=== PATIENT | male | born 1945 | race Caucasian/White ===

== ENCOUNTER 2019-03-03 11:11 | Inpatient (IN) | payer OTHER ==
[~2019-03-03] VITALS: Ht 175.3 cm; Wt 94.8 kg
[~2019-03-03 11:11] MED LIST: AMIO200T6 PO; ATOR20TA64 PO; CARV12.548 PO; HYDR-4039 PO; L-THYROXINE PO; NOR10 PO
[2019-03-03 12:14] VITALS: BP_SYST 144
[2019-03-03] MEDS ORDERED: SAW/1TAB2 PO (13:48)
[2019-03-03] MEDS ORDERED: [UNRECOGNIZED DRUG - CODE] MC (13:48)
[2019-03-03] MEDS ORDERED: FINA5TAB3 PO (13:48)
[2019-03-03] MEDS ORDERED: ASCO500T20 PO (13:48)
[2019-03-03] MEDS ORDERED: MULT-1198 PO (13:48)
[2019-03-03] MEDS ORDERED: FURO-149 PO (13:48)
[2019-03-03] MEDS ORDERED: ASPI-1155 PO (13:48)
[2019-03-03] MEDS ORDERED: OMEG-173 PO (13:48)
[2019-03-03] MEDS ORDERED: CAT.1 PO (13:48)
[2019-03-03 14:02] LABS: ANION GAP 15 (5-15); CALCIUM 8.9 mg/dL (8.4-11.0); CHLORIDE 102 mmol/L (98-107); GLUCOSE 124 mg/dL (70-99); POTASSIUM 4.7 mmol/L (3.5-5.1); SODIUM SERUM 136 mmol/L (136-145)
[2019-03-03 14:07] LABS: CREATININE 7.73 mg/dL (0.55-1.30); UREA NITROGEN, BLOOD 128 mg/dL (8-21)
[2019-03-03 14:08] LABS: ALANINE AMINOTRANSFERASE 62 U/L (12-78); ALBUMIN 2.5 g/dL (3.4-4.8); ASPARTATE AMINOTRANSFERASE 29 U/L (10-37); TOTAL BILIRUBIN 0.9 mg/dL (0.0-1.0)
[2019-03-03 14:13] LABS: BASOPHILS % (AUTO) 0.1 % (0.0-2.0); LYMPHOCYTES % (AUTO) 6.3 % (20.5-51.5); MEAN CORPUSCULAR HEMOGLOBIN 34 pg (27-31); MEAN CORPUSCULAR HGB CONC 33 % (32-36); MEAN CORPUSCULAR VOLUME 103 fL (79.0-98.0); MONOCYTES % (AUTO) 6.3 % (1.7-9.3); NEUTROPHILS % (AUTO) 87.3 % (40.0-70.0); PLATELET COUNT (AUTO) 224 K/uL (130-430); RED CELL DISTRIBUTION WIDTH 13.3 % (9.0-15.0)
[2019-03-03 14:21] LABS: RED BLOOD CELL COUNT(AUTO) 1.88 MIL/uL (4.2-6.2)
[2019-03-03 14:28] LABS: HEMOGLOBIN 6.3 g/dL (14.0-18.0)
[2019-03-03 14:29] LABS: HEMATOCRIT 19.4 % (36-54)
[2019-03-03 16:00] VITALS: BP_SYST 122; BP_SYST 144
[2019-03-03] MEDS ORDERED: LevALBUTEROL HCL 1.25 MG/0.5 ML *CONC.* VIAL.NEB (XOPENEX CONC.) INH PRN (16:00)
[2019-03-03] MEDS ORDERED: PROPOFOL 200MG/ 20ML VIAL (DIPRIVAN) IV ONE (17:20)
[2019-03-03] MEDS ORDERED: BUPIVACAINE /EPINEPHRINE/PF 0.25% 30 ML VIAL INJ ONE (17:20)
[2019-03-03] MEDS ORDERED: HEPARIN SODIUM,PORCINE/NS/PF 1,000 UNITS/500 ML BAG IV ONE (17:20)
[2019-03-03] MEDS ORDERED: HEPARIN SODIUM,PORCINE 5000 UNITS/ML VIAL SUBCUT ONE (17:20)
[2019-03-03] MEDS ORDERED: LIDOCAINE/EPI 1% 1:100000 20 ML VIAL INJ ONE (17:20)
[2019-03-03] MEDS ORDERED: 0.45% NACL 1,000 ML BAG IV ONE (17:20)
[2019-03-03] MEDS ORDERED: MIDAZOLAM HCL 5 MG/5 ML VIAL IVP ONE (17:20)
[2019-03-03] MEDS ORDERED: ONDANSETRON HCL 4 MG/2 ML VIAL IVP ONE (17:20)
[2019-03-03] MEDS: cefTRIAXone 1 GM in D5W 50 ML IV SCH (17:38)
[2019-03-03] MEDS: NACL 0.9% 1,000 ML IV SCH (17:39)
[2019-03-03 19:05] VITALS: BP_SYST 144
[2019-03-03] MEDS: CARVEDILOL 25 MG TABLET (COREG) PO SCH (20:08)
[2019-03-03] MEDS: AZITHROMYCIN 500 MG in NS 250 ML IV SCH (20:08)
[2019-03-03] MEDS: hydrALAZINE HCL 25 MG TABLET PO SCH (22:33)
[2019-03-03] MEDS: cloNIDine HCL 0.1 MG TABLET PO SCH (22:34)
[2019-03-03] MEDS: LevALBUTEROL HCL 1.25 MG/0.5 ML *CONC.* VIAL.NEB (XOPENEX CONC.) INH SCH (23:40)
[2019-03-04 00:46] VITALS: BP_SYST 123
[2019-03-04 01:21] LABS: TOTAL IRON BIND. CAPACITY 170 ug/dL (250-450)
[2019-03-04] MEDS: NACL 0.9% 1,000 ML IV SCH ×3 (06:07→22:34)
[2019-03-04] MEDS: hydrALAZINE HCL 25 MG TABLET PO SCH ×3 (06:08→21:07)
[2019-03-04] MEDS: cloNIDine HCL 0.1 MG TABLET PO SCH ×3 (06:08→21:07)
[2019-03-04] MEDS: LEVOTHYROXINE SODIUM 0.1 MG TABLET PO SCH (06:08)
[2019-03-04] MEDS: LevALBUTEROL HCL 1.25 MG/0.5 ML *CONC.* VIAL.NEB (XOPENEX CONC.) INH SCH ×2 (07:57→15:25)
[2019-03-04 08:52] LABS: BASOPHILS % (AUTO) 0.1 % (0.0-2.0); EOSINOPHILS % (AUTO) 0.1 % (0.0-4.0); HEMOGLOBIN 7.3 g/dL (14.0-18.0); LYMPHOCYTES # (AUTO) 1.1 K/uL (1.0-5.5); LYMPHOCYTES % (AUTO) 6.9 % (20.5-51.5); MEAN CORPUSCULAR HEMOGLOBIN 33 pg (27-31); MEAN CORPUSCULAR HGB CONC 33 % (32-36); MEAN CORPUSCULAR VOLUME 99 fL (79.0-98.0); MONOCYTES # (AUTO) 0.9 K/uL (0.0-1.0); MONOCYTES % (AUTO) 5.6 % (1.7-9.3); NEUTROPHILS # (AUTO) 13.4 K/uL (1.8-7.7); NEUTROPHILS % (AUTO) 87.3 % (40.0-70.0); PLATELET COUNT (AUTO) 215 K/uL (130-430); RED BLOOD CELL COUNT(AUTO) 2.21 MIL/uL (4.2-6.2); RED CELL DISTRIBUTION WIDTH 14.6 % (9.0-15.0); WHITE BLOOD COUNT (AUTO) 15.3 K/uL (4.8-10.8)
[2019-03-04] MEDS ORDERED: LYC PO SCH (09:00)
[2019-03-04] MEDS ORDERED: SAW PO SCH (09:00)
[2019-03-04] MEDS ORDERED: [UNRECOGNIZED DRUG - OTHER] PO SCH (09:00)
[2019-03-04] MEDS ORDERED: METHYLSULFONYLMETHANE MC SCH (09:00)
[2019-03-04] MEDS ORDERED: SOD SEL PO SCH (09:00)
[2019-03-04] MEDS ORDERED: BETA PO SCH (09:00)
[2019-03-04] MEDS ORDERED: PYG PO SCH (09:00)
[2019-03-04] MEDS ORDERED: VIT E PO SCH (09:00)
[2019-03-04 09:06] LABS: ANION GAP 16 (5-15); CALCIUM 8.3 mg/dL (8.4-11.0); CHLORIDE 105 mmol/L (98-107); CREATININE 7.42 mg/dL (0.55-1.30); GLUCOSE 107 mg/dL (70-99); POTASSIUM 4.4 mmol/L (3.5-5.1); SODIUM SERUM 138 mmol/L (136-145)
[2019-03-04 09:10] VITALS: BP_SYST 119
[2019-03-04] MEDS: OMEGA-3/DHA/EPA/FISH OIL 1 GM CAPSULE PO SCH (09:14)
[2019-03-04] MEDS: ASPIRIN 81 MG TAB.CHEW PO SCH (09:14)
[2019-03-04] MEDS: ATORVASTATIN 20 MG TABLET PO SCH (09:14)
[2019-03-04] MEDS: CARVEDILOL 25 MG TABLET (COREG) PO SCH ×2 (09:14→21:08)
[2019-03-04] MEDS: MULTIVITS,CA,MINERALS/IRON/FA 1 TABLET PO SCH (09:15)
[2019-03-04] MEDS: ASCORBIC ACID 500 MG TABLET PO SCH (09:15)
[2019-03-04] MEDS: FINASTERIDE 5 MG TABLET (PROSCAR) PO SCH (09:15)
[2019-03-04] MEDS: amLODIPine BESYLATE 5 MG TABLET PO SCH (09:15)
[2019-03-04 09:19] LABS: UREA NITROGEN, BLOOD 130 mg/dL (8-21)
[2019-03-04 14:42] VITALS: BP_SYST 116
[2019-03-04] MEDS: cefTRIAXone 1 GM in D5W 50 ML IV SCH (15:58)
[2019-03-04 16:41] VITALS: BP_SYST 116
[2019-03-04] MEDS: AZITHROMYCIN 500 MG in NS 250 ML IV SCH (16:49)
[2019-03-04 16:57] LABS: BILIRUBIN,URINE NEGATIVE (NEGATIVE); BLOOD, URINE 3+ (NEGATIVE); CLARITY/URINE HAZY (CLEAR); COLOR,URINE YELLOW (YELLOW); GLUCOSE,URINE NEGATIVE (NEGATIVE); KETONES,URINE NEGATIVE (NEGATIVE); LEUKOCYTE ESTERASE ,URINE 3+ (NEGATIVE); NITRITE, URINE NEGATIVE (NEGATIVE); PH,URINE 5.5 (5.0-8.0); PROTEIN URINE 3+ (NEGATIVE); UROBILINOGEN,URINE 0.2 (0.2-1.0)
[2019-03-04 17:05] LABS: BACTERIA,URINE MANY /HPF (None Seen); MUCUS,URINE None Seen /LPF (None Seen); RBC,URINE 20-50 /HPF (0-3); WBC,URINE >100 /HPF (0-3)
[2019-03-04 19:45] VITALS: BP_SYST 136
[2019-03-04 23:21] VITALS: BP_SYST 123
[2019-03-05] MEDS: LevALBUTEROL HCL 1.25 MG/0.5 ML *CONC.* VIAL.NEB (XOPENEX CONC.) INH SCH ×4 (00:30→23:19)
[2019-03-05] MEDS: hydrALAZINE HCL 25 MG TABLET PO SCH ×3 (06:01→21:05)
[2019-03-05] MEDS: LEVOTHYROXINE SODIUM 0.1 MG TABLET PO SCH (06:02)
[2019-03-05] MEDS: cloNIDine HCL 0.1 MG TABLET PO SCH ×3 (06:02→21:04)
[2019-03-05 06:22] LABS: BASOPHILS % (AUTO) 0.1 % (0.0-2.0); EOSINOPHILS % (AUTO) 0.1 % (0.0-4.0); HEMATOCRIT 22.3 % (36-54); HEMOGLOBIN 7.4 g/dL (14.0-18.0); LYMPHOCYTES # (AUTO) 1.1 K/uL (1.0-5.5); LYMPHOCYTES % (AUTO) 8.7 % (20.5-51.5); MEAN CORPUSCULAR HEMOGLOBIN 34 pg (27-31); MEAN CORPUSCULAR HGB CONC 33 % (32-36); MEAN CORPUSCULAR VOLUME 102 fL (79.0-98.0); MONOCYTES # (AUTO) 0.7 K/uL (0.0-1.0); MONOCYTES % (AUTO) 5.3 % (1.7-9.3); NEUTROPHILS # (AUTO) 11.1 K/uL (1.8-7.7); NEUTROPHILS % (AUTO) 85.8 % (40.0-70.0); PLATELET COUNT (AUTO) 226 K/uL (130-430); RED BLOOD CELL COUNT(AUTO) 2.19 MIL/uL (4.2-6.2); RED CELL DISTRIBUTION WIDTH 14.3 % (9.0-15.0)
[2019-03-05 06:43] LABS: ANION GAP 17 (5-15); CALCIUM 8.3 mg/dL (8.4-11.0); CHLORIDE 106 mmol/L (98-107); CREATININE 7.32 mg/dL (0.55-1.30); GLUCOSE 103 mg/dL (70-99); POTASSIUM 4.4 mmol/L (3.5-5.1); SODIUM SERUM 139 mmol/L (136-145)
[2019-03-05 07:13] LABS: UREA NITROGEN, BLOOD 129 mg/dL (8-21)
[2019-03-05 08:10] VITALS: BP_SYST 121
[2019-03-05] MEDS: ASPIRIN 81 MG TAB.CHEW PO SCH (08:40)
[2019-03-05] MEDS: amLODIPine BESYLATE 5 MG TABLET PO SCH (08:40)
[2019-03-05] MEDS: MULTIVITS,CA,MINERALS/IRON/FA 1 TABLET PO SCH (08:40)
[2019-03-05] MEDS: ASCORBIC ACID 500 MG TABLET PO SCH (08:41)
[2019-03-05] MEDS: FINASTERIDE 5 MG TABLET (PROSCAR) PO SCH (08:41)
[2019-03-05] MEDS: CARVEDILOL 25 MG TABLET (COREG) PO SCH ×2 (08:41→21:04)
[2019-03-05] MEDS: ATORVASTATIN 20 MG TABLET PO SCH (08:41)
[2019-03-05] MEDS: OMEGA-3/DHA/EPA/FISH OIL 1 GM CAPSULE PO SCH (08:41)
[2019-03-05 12:17] VITALS: BP_SYST 128
[2019-03-05] MEDS: cefTRIAXone 1 GM in D5W 50 ML IV SCH (15:25)
[2019-03-05 16:02] VITALS: BP_SYST 141
[2019-03-05] MEDS: AZITHROMYCIN 500 MG in NS 250 ML IV SCH (17:01)
[2019-03-05 20:00] VITALS: BP_SYST 125
[2019-03-06] MEDS: NACL 0.9% 1,000 ML IV SCH ×2 (04:36→16:17)
[2019-03-06] MEDS: hydrALAZINE HCL 25 MG TABLET PO SCH ×3 (06:57→22:10)
[2019-03-06] MEDS: LEVOTHYROXINE SODIUM 0.1 MG TABLET PO SCH (06:57)
[2019-03-06] MEDS: cloNIDine HCL 0.1 MG TABLET PO SCH ×3 (06:58→22:08)
[2019-03-06 07:03] LABS: BASOPHILS % (AUTO) 0.2 % (0.0-2.0); EOSINOPHILS % (AUTO) 0.3 % (0.0-4.0); HEMATOCRIT 22.6 % (36-54); HEMOGLOBIN 7.6 g/dL (14.0-18.0); LYMPHOCYTES # (AUTO) 1.1 K/uL (1.0-5.5); LYMPHOCYTES % (AUTO) 8.7 % (20.5-51.5); MEAN CORPUSCULAR HEMOGLOBIN 34 pg (27-31); MEAN CORPUSCULAR HGB CONC 34 % (32-36); MEAN CORPUSCULAR VOLUME 100 fL (79.0-98.0); MONOCYTES # (AUTO) 0.6 K/uL (0.0-1.0); MONOCYTES % (AUTO) 5.1 % (1.7-9.3); NEUTROPHILS # (AUTO) 10.4 K/uL (1.8-7.7); NEUTROPHILS % (AUTO) 85.7 % (40.0-70.0); PLATELET COUNT (AUTO) 252 K/uL (130-430); RED BLOOD CELL COUNT(AUTO) 2.26 MIL/uL (4.2-6.2); RED CELL DISTRIBUTION WIDTH 14.6 % (9.0-15.0); WHITE BLOOD COUNT (AUTO) 12.2 K/uL (4.8-10.8)
[2019-03-06 08:16] VITALS: BP_SYST 121
[2019-03-06] MEDS: FINASTERIDE 5 MG TABLET (PROSCAR) PO SCH (08:17)
[2019-03-06] MEDS: OMEGA-3/DHA/EPA/FISH OIL 1 GM CAPSULE PO SCH (08:17)
[2019-03-06] MEDS: CARVEDILOL 25 MG TABLET (COREG) PO SCH ×2 (08:18→22:10)
[2019-03-06] MEDS: ASCORBIC ACID 500 MG TABLET PO SCH (08:18)
[2019-03-06] MEDS: ASPIRIN 81 MG TAB.CHEW PO SCH (08:19)
[2019-03-06] MEDS: amLODIPine BESYLATE 5 MG TABLET PO SCH (08:19)
[2019-03-06] MEDS: MULTIVITS,CA,MINERALS/IRON/FA 1 TABLET PO SCH (08:19)
[2019-03-06] MEDS: ATORVASTATIN 20 MG TABLET PO SCH (08:19)
[2019-03-06] MEDS: LevALBUTEROL HCL 1.25 MG/0.5 ML *CONC.* VIAL.NEB (XOPENEX CONC.) INH SCH ×3 (08:25→23:03)
[2019-03-06 08:44] LABS: ANION GAP 19 (5-15); CALCIUM 8.5 mg/dL (8.4-11.0); CHLORIDE 107 mmol/L (98-107); CREATININE 7.28 mg/dL (0.55-1.30); GLUCOSE 97 mg/dL (70-99); POTASSIUM 4.3 mmol/L (3.5-5.1); SODIUM SERUM 140 mmol/L (136-145)
[2019-03-06 10:22] LABS: UREA NITROGEN, BLOOD 137 mg/dL (8-21)
[2019-03-06 12:00] VITALS: BP_SYST 126
[2019-03-06 15:20] VITALS: BP_SYST 126
[2019-03-06 15:29] VITALS: BP_SYST 145
[2019-03-06] MEDS: cefTRIAXone 1 GM in D5W 50 ML IV SCH (16:17)
[2019-03-06] MEDS: AZITHROMYCIN 500 MG in NS 250 ML IV SCH (17:17)
[2019-03-06] MEDS ORDERED: HEPARIN SODIUM,PORCINE 5000 UNITS/ML VIAL IVP ONE (17:30)
[2019-03-06 20:00] VITALS: BP_SYST 141
[2019-03-06] MEDS ORDERED: LIDOCAINE 1%, 20 ML MDV 20 ML ONE (22:01)
[2019-03-06 22:41] LABS: BASOPHILS % (AUTO) 0.1 % (0.0-2.0); HEMOGLOBIN 7.6 g/dL (14.0-18.0); RED CELL DISTRIBUTION WIDTH 14.6 % (9.0-15.0)
[2019-03-06 22:46] LABS: EOSINOPHILS % (AUTO) 0.1 % (0.0-4.0); HEMATOCRIT 22.8 % (36-54); LYMPHOCYTES % (AUTO) 8.4 % (20.5-51.5); MEAN CORPUSCULAR HEMOGLOBIN 33 pg (27-31); MEAN CORPUSCULAR HGB CONC 34 % (32-36); MEAN CORPUSCULAR VOLUME 100 fL (79.0-98.0); MONOCYTES # (AUTO) 0.7 K/uL (0.0-1.0); MONOCYTES % (AUTO) 5.4 % (1.7-9.3); NEUTROPHILS # (AUTO) 10.5 K/uL (1.8-7.7); PLATELET COUNT (AUTO) 272 K/uL (130-430); RED BLOOD CELL COUNT(AUTO) 2.28 MIL/uL (4.2-6.2); WHITE BLOOD COUNT (AUTO) 12.2 K/uL (4.8-10.8)
[2019-03-06 23:40] VITALS: BP_SYST 135
[2019-03-07] MEDS: NACL 0.9% 1,000 ML IV SCH (05:51)
[2019-03-07] MEDS: hydrALAZINE HCL 25 MG TABLET PO SCH ×3 (05:52→21:03)
[2019-03-07] MEDS: cloNIDine HCL 0.1 MG TABLET PO SCH ×3 (05:52→21:02)
[2019-03-07] MEDS: LEVOTHYROXINE SODIUM 0.1 MG TABLET PO SCH (05:52)
[2019-03-07 06:10] LABS: BASOPHILS % (AUTO) 0.3 % (0.0-2.0); EOSINOPHILS % (AUTO) 0.2 % (0.0-4.0); HEMATOCRIT 22.5 % (36-54); HEMOGLOBIN 7.4 g/dL (14.0-18.0); LYMPHOCYTES # (AUTO) 1.2 K/uL (1.0-5.5); LYMPHOCYTES % (AUTO) 9.5 % (20.5-51.5); MEAN CORPUSCULAR HEMOGLOBIN 33 pg (27-31); MEAN CORPUSCULAR HGB CONC 33 % (32-36); MEAN CORPUSCULAR VOLUME 101 fL (79.0-98.0); MONOCYTES # (AUTO) 0.7 K/uL (0.0-1.0); MONOCYTES % (AUTO) 5.4 % (1.7-9.3); NEUTROPHILS # (AUTO) 10.5 K/uL (1.8-7.7); NEUTROPHILS % (AUTO) 84.6 % (40.0-70.0); PLATELET COUNT (AUTO) 274 K/uL (130-430); RED BLOOD CELL COUNT(AUTO) 2.24 MIL/uL (4.2-6.2); RED CELL DISTRIBUTION WIDTH 14.7 % (9.0-15.0); WHITE BLOOD COUNT (AUTO) 12.4 K/uL (4.8-10.8)
[2019-03-07 06:30] LABS: ANION GAP 15 (5-15); CALCIUM 8.1 mg/dL (8.4-11.0); CHLORIDE 109 mmol/L (98-107); CREATININE 7.07 mg/dL (0.55-1.30); GLUCOSE 98 mg/dL (70-99); POTASSIUM 4.1 mmol/L (3.5-5.1); SODIUM SERUM 139 mmol/L (136-145)
[2019-03-07 06:43] LABS: UREA NITROGEN, BLOOD 134 mg/dL (8-21)
[2019-03-07] MEDS: ASPIRIN 81 MG TAB.CHEW PO SCH (07:47)
[2019-03-07 08:00] VITALS: BP_SYST 138
[2019-03-07] MEDS: LevALBUTEROL HCL 1.25 MG/0.5 ML *CONC.* VIAL.NEB (XOPENEX CONC.) INH SCH ×3 (08:02→23:04)
[2019-03-07] MEDS: CARVEDILOL 25 MG TABLET (COREG) PO SCH ×2 (09:00→21:02)
[2019-03-07] MEDS: FINASTERIDE 5 MG TABLET (PROSCAR) PO SCH (09:00)
[2019-03-07] MEDS: ATORVASTATIN 20 MG TABLET PO SCH (09:00)
[2019-03-07] MEDS: MULTIVITS,CA,MINERALS/IRON/FA 1 TABLET PO SCH (09:00)
[2019-03-07] MEDS: amLODIPine BESYLATE 5 MG TABLET PO SCH (09:00)
[2019-03-07] MEDS: OMEGA-3/DHA/EPA/FISH OIL 1 GM CAPSULE PO SCH (09:00)
[2019-03-07] MEDS: ASCORBIC ACID 500 MG TABLET PO SCH (09:00)
[2019-03-07 12:11] VITALS: BP_SYST 130
[2019-03-07] MEDS ORDERED: EPOETIN ALFA 10,000 UNITS/ML VIAL SUBCUT ONE (14:00)
[2019-03-07] MEDS: cefTRIAXone 1 GM in D5W 50 ML IV SCH (14:56)
[2019-03-07 15:18] LABS: EOSINOPHILS % (AUTO) 0.2 % (0.0-4.0); HEMATOCRIT 23.6 % (36-54); HEMOGLOBIN 7.8 g/dL (14.0-18.0); LYMPHOCYTES # (AUTO) 1.1 K/uL (1.0-5.5); LYMPHOCYTES % (AUTO) 8.3 % (20.5-51.5); MEAN CORPUSCULAR HEMOGLOBIN 33 pg (27-31); MEAN CORPUSCULAR HGB CONC 33 % (32-36); MEAN CORPUSCULAR VOLUME 100 fL (79.0-98.0); MONOCYTES # (AUTO) 0.8 K/uL (0.0-1.0); NEUTROPHILS # (AUTO) 10.8 K/uL (1.8-7.7); NEUTROPHILS % (AUTO) 85.5 % (40.0-70.0); PLATELET COUNT (AUTO) 267 K/uL (130-430); RED BLOOD CELL COUNT(AUTO) 2.36 MIL/uL (4.2-6.2); RED CELL DISTRIBUTION WIDTH 14.5 % (9.0-15.0); WHITE BLOOD COUNT (AUTO) 12.6 K/uL (4.8-10.8)
[2019-03-07 15:23] LABS: ANION GAP 15 (5-15); CALCIUM 8.4 mg/dL (8.4-11.0); CHLORIDE 108 mmol/L (98-107); CREATININE 4.87 mg/dL (0.55-1.30); GLUCOSE 100 mg/dL (70-99); POTASSIUM 3.5 mmol/L (3.5-5.1); SODIUM SERUM 143 mmol/L (136-145); UREA NITROGEN, BLOOD 88 mg/dL (8-21)
[2019-03-07] MEDS: AZITHROMYCIN 500 MG in NS 250 ML IV SCH (17:00)
[2019-03-07] MEDS ORDERED: 0.45% NACL 1,000 ML IV SCH (18:01)
[2019-03-07] MEDS ORDERED: METOCLOPRAMIDE HCL 10 MG/2 ML VIAL IVP PRN (18:15)
[2019-03-07 20:00] VITALS: BP_SYST 121
[2019-03-08 01:20] VITALS: BP_SYST 122
[2019-03-08] MEDS: cloNIDine HCL 0.1 MG TABLET PO SCH ×2 (06:00→13:05)
[2019-03-08] MEDS: hydrALAZINE HCL 25 MG TABLET PO SCH ×3 (06:00→15:54)
[2019-03-08] MEDS: LEVOTHYROXINE SODIUM 0.1 MG TABLET PO SCH (06:33)
[2019-03-08 06:35] LABS: BASOPHILS % (AUTO) 0.2 % (0.0-2.0); EOSINOPHILS % (AUTO) 0.2 % (0.0-4.0); HEMOGLOBIN 7.2 g/dL (14.0-18.0); LYMPHOCYTES # (AUTO) 1.4 K/uL (1.0-5.5); LYMPHOCYTES % (AUTO) 11.3 % (20.5-51.5); MEAN CORPUSCULAR HEMOGLOBIN 34 pg (27-31); MEAN CORPUSCULAR HGB CONC 33 % (32-36); MEAN CORPUSCULAR VOLUME 103 fL (79.0-98.0); MONOCYTES # (AUTO) 0.8 K/uL (0.0-1.0); MONOCYTES % (AUTO) 6.5 % (1.7-9.3); NEUTROPHILS % (AUTO) 81.8 % (40.0-70.0); PLATELET COUNT (AUTO) 259 K/uL (130-430); RED BLOOD CELL COUNT(AUTO) 2.11 MIL/uL (4.2-6.2); RED CELL DISTRIBUTION WIDTH 14.2 % (9.0-15.0); WHITE BLOOD COUNT (AUTO) 12.2 K/uL (4.8-10.8)
[2019-03-08 06:36] VITALS: BP_SYST 135
[2019-03-08 06:51] LABS: ALANINE AMINOTRANSFERASE 57 U/L (12-78); ALBUMIN 1.9 g/dL (3.4-4.8); ANION GAP 15 (5-15); ASPARTATE AMINOTRANSFERASE 29 U/L (10-37); CHLORIDE 107 mmol/L (98-107); CREATININE 5.45 mg/dL (0.55-1.30); GLUCOSE 90 mg/dL (70-99); SODIUM SERUM 144 mmol/L (136-145); TOTAL BILIRUBIN 0.4 mg/dL (0.0-1.0); UREA NITROGEN, BLOOD 97 mg/dL (8-21)
[2019-03-08] MEDS: LevALBUTEROL HCL 1.25 MG/0.5 ML *CONC.* VIAL.NEB (XOPENEX CONC.) INH SCH ×2 (07:15→15:05)
[2019-03-08 07:36] LABS: HEMATOCRIT 21.6 % (36-54)
[2019-03-08 08:05] VITALS: BP_SYST 140
[2019-03-08 08:36] LABS: HEPATITIS A AB, IgM Negative (Negative); HEPATITIS B CORE AB, IgM Negative (Negative); HEPATITIS B SURFACE AG Negative (Negative)
[2019-03-08] MEDS: CARVEDILOL 25 MG TABLET (COREG) PO SCH ×2 (09:00→15:55)
[2019-03-08] MEDS: amLODIPine BESYLATE 5 MG TABLET PO SCH (09:00)
[2019-03-08] MEDS: ATORVASTATIN 20 MG TABLET PO SCH (09:09)
[2019-03-08] MEDS: ASPIRIN 81 MG TAB.CHEW PO SCH (09:09)
[2019-03-08] MEDS: ASCORBIC ACID 500 MG TABLET PO SCH (09:09)
[2019-03-08] MEDS: OMEGA-3/DHA/EPA/FISH OIL 1 GM CAPSULE PO SCH (09:09)
[2019-03-08] MEDS: MULTIVITS,CA,MINERALS/IRON/FA 1 TABLET PO SCH (09:09)
[2019-03-08] MEDS: FINASTERIDE 5 MG TABLET (PROSCAR) PO SCH (09:09)
[2019-03-08 11:38] VITALS: BP_SYST 141
[2019-03-08] MEDS ORDERED: HEPARIN SODIUM, PORCINE 10,000 UNITS/ 10 ML VIAL MC ONE (14:15)
[2019-03-08] MEDS ORDERED: HEPARIN SODIUM,PORCINE 5000 UNITS/ML VIAL ONE (14:23)
[2019-03-08] MEDS: cefTRIAXone 1 GM in D5W 50 ML IV SCH (15:55)
[2019-03-08 16:53] VITALS: BP_SYST 147
[2019-03-08 18:11] LABS: FOLATE (FOLIC ACID) 15.7 ng/mL (>3.0)
[2019-03-08 18:38] VITALS: BP_SYST 143
== END 2019-03-08 19:19 | disposition home or self-care (01) | DRG 673 ==
LOC: STU 12:03 → SMU 03-06 22:34
PROVIDERS: ADMIT Family Medicine; ATTEND Family Medicine
PROC: 30233N1 Transfusion of Nonautologous Red Blood Cells into Peripheral Vein, Percutaneous Approach (ICD-10-PCS; principal; 2019-03-03)
PROC: 02HV33Z Insertion of Infusion Device into Superior Vena Cava, Percutaneous Approach (ICD-10-PCS; 2019-03-06)
PROC: B548ZZA Ultrasonography of Superior Vena Cava, Guidance (ICD-10-PCS; 2019-03-06)
PROC: 0JH63XZ Insertion of Tunneled Vascular Access Device into Chest Subcutaneous Tissue and Fascia, Percutaneous Approach (ICD-10-PCS; 2019-03-07)
PROC: 02HV33Z Insertion of Infusion Device into Superior Vena Cava, Percutaneous Approach (ICD-10-PCS; 2019-03-07)
PROC: B5181ZA Fluoroscopy of Superior Vena Cava using Low Osmolar Contrast, Guidance (ICD-10-PCS; 2019-03-07)
PROC: 02PYX3Z Removal of Infusion Device from Great Vessel, External Approach (ICD-10-PCS; 2019-03-07)
DX: N17.0 Acute kidney failure with tubular necrosis (principal); E43 Unspecified severe protein-calorie malnutrition; J18.9 Pneumonia, unspecified organism; I13.2 Hypertensive heart and chronic kidney disease with heart failure and with stage 5 chronic kidney disease, or end stage renal disease; N18.5 Chronic kidney disease, stage 5; E86.0 Dehydration; E03.9 Hypothyroidism, unspecified; D53.9 Nutritional anemia, unspecified; G62.9 Polyneuropathy, unspecified; K21.9 Gastro-esophageal reflux disease without esophagitis; I50.9 Heart failure, unspecified; M19.90 Unspecified osteoarthritis, unspecified site; Z68.30 Body mass index [BMI] 30.0-30.9, adult; Z79.899 Other long term (current) drug therapy; Z79.82 Long term (current) use of aspirin; Z90.49 Acquired absence of other specified parts of digestive tract
CPT/HCPCS: 36415; 71045; 76000; 76770; 80048; 80053; 80074; 81000-TC; 82272; 82607; 82728; 82746; 83540-TC; 83550-TC; 83880; 84443-TC; 85025; 85730-TC; 86480; 86886; 86900; 86901; 86920; 87081; 90935; 90937; 93005; 93306; 94640; 94760; C1750; C1751; G0378; J0456; J0696; J0885; J1644; J2001; J2250; J2405; J2704; J3490; J7030; J7050; J7060; J7612; P9021

== ENCOUNTER 2019-05-23 11:02 | Outpatient (CLI) | payer OTHER ==
[~2019-05-23 11:02] MED LIST changes: -AMIO200T6 PO; +ASCO500T20 PO; +ASPI-1155 PO; +CAT.1 PO; +FINA5TAB3 PO; +MULT-1198 PO; +OMEG-173 PO; +SAW/1TAB2 PO; +[UNRECOGNIZED DRUG - CODE] MC
== END 2019-05-23 21:10 | disposition home or self-care (01) ==
LOC: SRD 11:02
PROVIDERS: ATTEND Family Medicine
DX: Z01.818 Encounter for other preprocedural examination (principal); I70.0 Atherosclerosis of aorta; I13.2 Hypertensive heart and chronic kidney disease with heart failure and with stage 5 chronic kidney disease, or end stage renal disease; I50.9 Heart failure, unspecified; N18.5 Chronic kidney disease, stage 5
CPT/HCPCS: 71046-TC